=== PATIENT | male | born 1995 | race Caucasian/White ===

== ENCOUNTER 2022-12-11 12:11 | Emergency (ER) | payer OTHER ==
[~2022-12-11] VITALS: Ht 177.8 cm; Wt 122.5 kg
[2022-12-11] MEDS ORDERED: ALBU90OI INH ×2 (13:52→14:24)
[2022-12-11] MEDS ORDERED: BENZ100A PO ×2 (13:52→14:24)
== END 2022-12-11 14:26 | disposition home or self-care (01) ==
LOC: ER 12:11
DX: S06.9X9A Unspecified intracranial injury with loss of consciousness of unspecified duration, initial encounter (principal); R05.9 Cough, unspecified; W19.XXXA Unspecified fall, initial encounter
CPT/HCPCS: 71046